=== PATIENT | male | born 1965 | race Caucasian/White ===

== ENCOUNTER 2017-12-04 15:05 | Emergency (ER) | payer BC, SELFPAY ==
[2017-12-04 15:06] VITALS: BP 108/68; PULSE 75; RESP 17; TEMP 36.7; O2SAT 96; BMI 29.4
--- NOTE | 2017-12-04 15:27 | US_ITS ---
STUDY: SCROTUM ULTRASOUND REASON FOR EXAM: Male, 51 years old. RIGHT SIDE PAIN TECHNIQUE: Ultrasound evaluation of the scrotum was performed with color Doppler and static darden-scale imaging. COMPARISON: None. FINDINGS: RIGHT TESTICLE INTRATESTICULAR: There is a normal size of the right testicle. The right testicle measures 5.2 x 4 x 2.6 cm. There is a homogenous echotexture. There is normal arterial and normal venous vascularity. There is no demonstrated right testicular mass or cyst. EXTRATESTICULAR: The epididymis is normal in size. The epididymis head measures 0.8 x 1.7 x 0.8 cm. There is normal vascularity of the epididymis. There is no demonstrated epididymal cystic structure. There is no demonstrated hydrocele. There is no demonstrated varicocele. There is no demonstrated extratesticular mass or cyst. LEFT TESTICLE INTRATESTICULAR: There is a normal size of the left testicle. The left testicle measures 4.1 x 3.7 x 2.2 cm. There is a homogenous echotexture. There is normal arterial and normal venous vascularity. There is no demonstrated left testicular mass or cyst. EXTRATESTICULAR: The epididymis is normal in size. The epididymis head measures 0.8 x 1.3 x 1 cm. There is normal vascularity of the epididymis. There is no demonstrated epididymal cystic structure. There is a moderate size hydrocele. There is no demonstrated varicocele. There is no demonstrated extratesticular mass or cyst. US/Testicular with Arterial Flow IMPRESSION: Normal bilateral testicles without evidence for testicular torsion. Moderate left hydrocele Electronically Signed: Aidan Rodriguez MD at 16:27 EDT , Service support ,
[2017-12-04] MEDS: Ondansetron ODT 4 MG Tablet PO (15:33)
[2017-12-04] MEDS: HYDROcodone Bitartrate/Apap 5/325 Tablet PO (15:34)
[2017-12-04 16:09] LABS: Bacteria 0 SEEN /hpf (None Seen); Mucous, Urine 0 SEEN /hpf (<or=2+); Red Blood Cells-Urine 0 SEEN /hpf (0-5); Squamous Epithelial Cells - UA 0 SEEN /hpf (0-5); White Blood Cells 0 SEEN /hpf (0-5)
[2017-12-04 16:10] LABS: Color, Urine Yellow (Yellow); Glucose, Dipstick Normal (Normal); Ketone-Dipstick Negative (Negative); Leukocyte Esterase-Dipstick Negative /ul (Negative); Nitrite-Dipstick Negative (Negative); Occult Blood-Urine Negative /ul (Negative); Protein-Dipstick Negative (Negative); Urine Bilirubin Dipstick Negative (Negative); Urine Clarity Clear (Clear); Urine Urobilinogen Normal (Normal); Urine pH 6.5 (5.0 - 8.0)
--- NOTE | 2017-12-04 16:39 | ED.VISSUMM ---
- ER Visit Summary Date of Service: 12/04/17 Chief Complaint: Right testicle pain History of Present Illness: The patient is a 51 M who presents with right testicular pain. It is been present for about 1 week intermittently but today became more severe and constant. He rates his pain currently as 8 out of 10. He vomited once earlier today. He denies any penile discharge. He denies any urinary symptoms such as dysuria frequency urgency or hematuria. He states he does have a history of prior similar symptoms on one prior occasion and had a cyst on his left testicle which she underwent surgical intervention with Dr. Witt. He denies any fevers and review of systems is otherwise negative. Physical Examination: Afebrile vitals are normal Heart regular rate and rhythm Lungs are clear Abdomen soft Patient has right testicular tenderness I do not appreciate any abnormal mass there is no scrotal erythema or edema there is normal lie of the testicle normal cremasteric reflex Test Results: Urinalysis normal. Scrotal ultrasound shows a moderate sized left hydrocele otherwise normal. There is normal bilateral blood flow. Emergency Department Course and Treatment: Patient has a normal urinalysis and no findings on scrotal ultrasound to explain his pain however epididymitis and testicular sound are ruled out. He will follow-up with urology. He was given a prescription for short course of analgesics. Treatment Plan: [] Disposition: Discharge Impression: Right testicular pain This note was generated with [employer] dictation software. It may contain incorrect words, spelling, and punctuation that were not noted in review of the chart prior to signing ED Disposition - Plan for ED Patient: Chief Complaint: Male Pain/Injury Referrals: Bruce Rowland DO [Primary Care Provider] -
--- NOTE | 2017-12-04 16:43 | DCINST.ED_ITS ---
ED Disposition - Plan for ED Patient: Chief Complaint: Male Pain/Injury Instructions: ED Testicular Pain [facility] Prescriptions: Hydrocodone Bitart/Apap 5-325 [[place] 5/325] 1 - 2 tab PO Q4H PRN PRN 3 Days #8 tab PRN Reason: Pain Referrals: Bruce Rowland DO [Primary Care Provider] -
--- NOTE | 2017-12-04 16:44 | DCINST.ED_ITS ---
ED Disposition - Plan for ED Patient: Chief Complaint: Male Pain/Injury Instructions: ED Testicular Pain [facility] Prescriptions: Hydrocodone Bitart/Apap 5-325 [[place] 5/325] 1 - 2 tab PO Q4H PRN PRN 3 Days #8 tab PRN Reason: Pain Referrals: Bruce Rowland DO [Primary Care Provider] - Osmar Gomez MD [STAFF PHYSICIAN] -
[2017-12-04 16:48] VITALS: RESP 14
== END 2017-12-04 16:48 | disposition home or self-care (01) ==
LOC: ED 16:04
PROVIDERS: Emergency Provider Emergency Medicine; Family Provider Student in an Organized Health Care Education/Training Program; PCP Student in an Organized Health Care Education/Training Program
DX: N50.811 Right testicular pain (principal); N43.3 Hydrocele, unspecified; J44.9 Chronic obstructive pulmonary disease, unspecified; Z72.0 Tobacco use
CPT/HCPCS: 76870; 81001; 93976; 99282